=== PATIENT | male | born 1950 | race Caucasian/White ===

== ENCOUNTER 2017-06-07 11:12 | Inpatient (IN) | payer OTHER ==
[~2017-06-07] VITALS: Ht 182.9 cm; Wt 225.4 kg
--- NOTE | ~2017-06-07 | D ---
[facility] [place] [address] DISCHARGE SUMMARY Name: DANNIE DUBOIS Room #: 441-P [facility]..#: [id number] Admission: 06/07/17 Attend Phys: Katie Black MD Discharge: 06/08/17 Date of : 46 Report #: [id number] THIS REPORT FOR: //name// CC: Katie Black DATE OF SERVICE: 06/08/2017 HOSPITAL COURSE: The patient is a 67-year-old morbidly obese white male who has undergone bilateral knee replacement surgeries. He fell in his home and when attempting to get himself up, he rolled over onto his knees and then strained his right knee while he attempted to rise. He had to call the network/telecom engineer to bring him in as he was in severe pain and was unable to bear any weight on that knee. X-rays done in the Emergency Room fortunately did not show any damage to the artificial joint. Physical therapy was consulted. He was able to with assistance get out of bed. He is very worried about getting home due to an appointment tomorrow morning with Cardiology at a different institution to get medical clearance to have bariatric surgery, so therefore, he is discharged home with his medications of albuterol, duloxetine, fluticasone, metformin, omeprazole, triamterene, lisinopril, aspirin, , potassium, metoprolol, pramipexole, diphenhydramine, ipratropium and oxycodone 10/325 one tablet every 4 hours as needed for pain. He is to follow up with his orthopedic surgeon within the next week and follow up with me in 1-2 weeks. <ELECTRONICALLY SIGNED> By: Katie Black MD 06/10/17 0753 [id number] 1704 Katie Black MD /nt
[~2017-06-07 11:12] MED LIST: ACETAMINOPHEN PO; ACIDOPHILUS1 EACH PO; ADVIL200 M2 PO; AMARYL2 MG PO; AMITRIPTYLINE H25 M2 PO; ANTACID PO; BENADRYL25 MG PO; BENAZEPRIL HCL40 MG PO; BIOFREEZE PAI3840 GM TP; BISAC-EVAC10 MG RE; CEPHALEXIN 500500 M1; CITRATE OF MAG296 ML PO; CITRUCEL CAPLET1 TAB PO; COLACE100 MG PO; CYMBALTA30 MG PO; DIFLUCAN PO; DULCOLAX5 MG PO; ENDOCET 10-3251 EACH PO; FLEXERIL PO; FLOMAX PO; FLOVENT HFA 1110 MCG IH; GAS RELIEF180 MG PO; GLUCOPHAGE500 MG PO; HYDROXYZINE HCL50 MG PO; HYTRIN 5 M5 MG/1 CA1 PO; IBUPROFEN 800800 M1 PO; INVANZ IV; KCL PO; LASIX 80 MG TAB80 M1; LISINOPRIL10 MG PO; LORTAB 7.5/5001 TA3 PO; MAXZIDE 75-501 EACH PO; MELOXICAM7.5 MG PO; MILK OF MAGNESIA; MIRALAX255 GM PO; MIRAPEX0.5 MG; MIRAPEX0.5 MG PO; NEXIUM40 MG PO; NYSTATIN 100,0015 G1 TP; OMEPRAZOLE40 MG PO; OXYCONTIN CR 1010 M1 PO; OXYCONTIN CR 2020 MG PO; PERCOCET 5-3251 EACH PO; PREDNISONE 5 MG5 MG PO; PRILOSEC 20 MG20 MG PO; PROVENTIL IH; SENOKOT-S1 TA1 PO; TIZANIDINE HCL4 MG PO; TRIAMTERENE-HC1 EAC3 PO; VERAPAMIL E.R240 M1 PO
[2017-06-07 11:13] VITALS: BP 111/70
[2017-06-07 12:46] LABS: ABSOLUTE NEUTROPHILS 5.7 thou/uL (1.4-8.2); BASOPHILS 1.1 % (0.0-2.0); EOSINOPHILS 4.1 % (0.0-3.0); HEMATOCRIT 44.4 % (42.0-52.0); HEMOGLOBIN 14.8 gm/dL (14.0-18.0); LYMPHOCYTES 22.4 % (24.0-44.0); MCH 26.7 pg (26.0-34.0); MCHC 33.3 g/dL (28.0-37.0); MCV 80.1 fL (80.0-100.0); MONOCYTES 8.7 % (1.0-8.0); PLATELET COUNT 223 thou/uL (150-400); POLYS 63.7 % (36.0-66.0); RBC 5.55 mil/uL (4.50-6.00); RDW 16.3 % (10.5-14.5); WBC 8.9 thou/uL (4.0-11.0)
[2017-06-07 12:52] LABS: CALCIUM 9.4 mg/dL (8.5-10.1); CREATININE 1.1 mg/dL (0.7-1.3); POTASSIUM 4.6 mmol/L (3.5-5.1)
[2017-06-07 14:36] VITALS: BP 111/70
[2017-06-07] MEDS ORDERED: LISINOPRIL10 MG PO (15:12)
[2017-06-07] MEDS ORDERED: ASPIR-TRIN325 MG PO (15:14)
[2017-06-07] MEDS ORDERED: LASIX 80 MG TAB80 MG PO (15:14)
[2017-06-07] MEDS ORDERED: POTASSIUM20 PO (15:15)
[2017-06-07 15:16] VITALS: BP 110/72
[2017-06-07 16:01] VITALS: BP 102/57
[2017-06-07] MEDS ORDERED: LOPRESSOR50 PO (16:12)
[2017-06-07] MEDS ORDERED: KLOR-CON 1010 MEQ PO (16:17)
[2017-06-07] MEDS ORDERED: PRAMIPEXOLE DI0.5 MG PO (16:18)
[2017-06-07] MEDS ORDERED: PRILOSEC 20 MG20 MG PO (16:19)
[2017-06-07] MEDS ORDERED: BENADRYL25 MG PO (16:20)
[2017-06-07] MEDS ORDERED: IPRATROPIU0.2 MG/1 M INH (16:21)
[2017-06-07 20:35] VITALS: BP 106/58
[2017-06-08 04:00] VITALS: BP 109/52
[2017-06-08 07:43] VITALS: BP 118/52
[2017-06-08] MEDS ORDERED: ENDOCET 10-3251 EACH PO (14:58)
[2017-06-08 15:13] VITALS: BP 118/52
[2017-06-08 15:40] VITALS: BP 118/52
[2017-10-25] MEDS ORDERED: CIALIS20 MG PO (09:04)
[2017-10-25] MEDS ORDERED: CALCIUM500 M1 PO (09:05)
[2017-10-25] MEDS ORDERED: UNICOMPLEX M TA1 TA1 PO (09:05)
[2017-10-25] MEDS ORDERED: STOOL SOFTENER1 EAC2 PO (09:06)
== END 2017-06-08 16:30 | disposition home health service (06) | DRG 563 ==
LOC: ER 11:12 → 4S 13:09 → EROBS 13:09 → 4S 15:40 → ENTRNSPT 06-08 15:57 → 4S 06-08 16:30
PROVIDERS: Emergency Medicine
DX: S83.91XA Sprain of unspecified site of right knee, initial encounter (principal); Z68.44 Body mass index [BMI] 60.0-69.9, adult; E66.01 Morbid (severe) obesity due to excess calories; M19.90 Unspecified osteoarthritis, unspecified site; G47.33 Obstructive sleep apnea (adult) (pediatric); G89.29 Other chronic pain; M54.5 Low back pain; K21.9 Gastro-esophageal reflux disease without esophagitis; N40.0 Benign prostatic hyperplasia without lower urinary tract symptoms; F32.9 Major depressive disorder, single episode, unspecified; J44.9 Chronic obstructive pulmonary disease, unspecified; I10 Essential (primary) hypertension; W18.39XA Other fall on same level, initial encounter; Z96.653 Presence of artificial knee joint, bilateral; E11.9 Type 2 diabetes mellitus without complications; Z79.899 Other long term (current) drug therapy; Z88.5 Allergy status to narcotic agent; Z91.041 Radiographic dye allergy status; Z91.040 Latex allergy status; Y93.89 Activity, other specified; Y92.89 Other specified places as the place of occurrence of the external cause; Y99.8 Other external cause status
CPT/HCPCS: 10195

== ENCOUNTER → 2017-10-05 | Outpatient (CLI) | payer OTHER ==
[~2017-10-05] MED LIST changes: +ASPIR 8181 M1 PO; +IPRATROPIU0.2 MG/1 M INH; +KLOR-CON 1010 MEQ PO; +LASIX 80 MG TAB80 MG PO; +LOPRESSOR50 PO; +POTASSIUM20 PO; +PRAMIPEXOLE DI0.5 MG PO
== END ==
LOC: HYPER 06:57
DX: E11.621 Type 2 diabetes mellitus with foot ulcer (principal); L89.892 Pressure ulcer of other site, stage 2; L97.121 Non-pressure chronic ulcer of left thigh limited to breakdown of skin; L97.111 Non-pressure chronic ulcer of right thigh limited to breakdown of skin; I10 Essential (primary) hypertension; M10.9 Gout, unspecified; L30.9 Dermatitis, unspecified; E66.01 Morbid (severe) obesity due to excess calories; M19.90 Unspecified osteoarthritis, unspecified site; K21.9 Gastro-esophageal reflux disease without esophagitis; G47.30 Sleep apnea, unspecified; F32.9 Major depressive disorder, single episode, unspecified; Z98.49 Cataract extraction status, unspecified eye; Z68.43 Body mass index [BMI] 50.0-59.9, adult; Z96.653 Presence of artificial knee joint, bilateral; Z87.891 Personal history of nicotine dependence

== ENCOUNTER → 2017-10-19 | Outpatient (CLI) | payer OTHER | LOC: HYPER 06:55 | DX: E11.622 Type 2 diabetes mellitus with other skin ulcer (principal); L98.411 Non-pressure chronic ulcer of buttock limited to breakdown of skin; L89.322 Pressure ulcer of left buttock, stage 2; L89.312 Pressure ulcer of right buttock, stage 2; I10 Essential (primary) hypertension; L30.9 Dermatitis, unspecified; E66.01 Morbid (severe) obesity due to excess calories; M10.9 Gout, unspecified; M19.90 Unspecified osteoarthritis, unspecified site; K21.9 Gastro-esophageal reflux disease without esophagitis; G47.30 Sleep apnea, unspecified; F32.9 Major depressive disorder, single episode, unspecified; Z98.49 Cataract extraction status, unspecified eye; Z68.43 Body mass index [BMI] 50.0-59.9, adult; Z96.653 Presence of artificial knee joint, bilateral; Z87.891 Personal history of nicotine dependence ==

== ENCOUNTER → 2017-10-25 | Outpatient (CLI) | payer OTHER ==
[~2017-10-25] VITALS: Ht 182.9 cm; Wt 167.8 kg
[~2017-10-25] MED LIST changes: -ASPIR 8181 M1 PO; +ASPIR-TRIN325 MG PO; +CALCIUM500 M1 PO; +CIALIS20 MG PO; +STOOL SOFTENER1 EAC2 PO; +UNICOMPLEX M TA1 TA1 PO
--- NOTE | ~2017-10-25 | HPC ---
[facility] [place] [address] PAIN MANAGEMENT CONSULTATION Name: RALFDANNYDANNIE Room #: [facility].#: [id number] Admission: 10/25/17 Attend Phys: Cruzito Burris DO Discharge: Date of : 48 Report #: [id number] THIS REPORT FOR: //name// CC: Cruzito Black MD DATE OF SERVICE: 10/25/2017 REFERRING PHYSICIAN: Katie Black MD CHIEF COMPLAINT: Right buttock and posterolateral thigh pain. HISTORY OF PRESENT ILLNESS: As you know, the patient is a morbidly obese 67-year-old male with longstanding history of right buttock and posterolateral thigh pain. The patient states his pain began to intensify in August 2017, denies injury or trauma. He indicates that he has undergone physical therapy twice a week for over a month without improvement in symptoms. The pain is localized to the right buttock area with mild radiation towards the posterolateral thigh. There is no dermatomal distribution of symptoms. The patient indicates pain is exacerbated with weightbearing, walking, and sitting, improves with lying down. The patient has been referred to our service to discuss options for treatment. He has been referred today without imaging studies. There is concern of lumbar radiculopathy. The patient indicates pain is continuous, describes his pain as shooting, aching and stabbing. He denies numbness, tingling, burning or electrical like sensations found with neuropathic pain. He states pain at level of 7/10, daily average is 7/10, worst pain has been is 10/10. The patient states that walking and sitting tends to exacerbate symptoms, repositioning and lying down tends to improve pain. He has been referred to our service to discuss treatment options. The patient has had previous epidural injection for low back pain about 20 years ago with resolution of symptoms. PAST MEDICAL HISTORY: 1. Diabetes mellitus type 2. 2. Asthma. 3. Hypertension. 4. Degenerative joint disease. 5. Osteoarthritis. 6. Class 3 morbid obesity. 7. Gastroesophageal reflux disease. 8. Seasonal allergies. 9. Depression. PAST SURGICAL HISTORY: Multiple knee replacements and surgeries, [facility] [address] [place] [address] PAIN MANAGEMENT CONSULTATION Name: DANNIE DUBOIS [id number] Admission: 10/25/17 Attend Phys: Cruzito Burris DO Discharge: Date of : 48 Report #: [id number] cholecystectomy, herniorrhaphy, open reduction and internal fixation of left hip, cataract excisions times 2, and gastric bypass. SOCIAL HISTORY: The patient denies tobacco, alcohol, IV or illicit drug use. 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 He has been retired for nearly 10 years. He is not receiving workmen's compensation nor is he trying to obtain disability benefits. He is not in litigation in regards to pain. He is accompanied by his who is present in room today. REVIEW OF SYSTEMS: Positive for weight change, cataracts, hearing loss with tinnitus, earaches with drainage, loss of appetite, constipation, frequent urination, change in force or stream of urination, kidney stones, insomnia, right buttock and posterolateral thigh pain, seasonal allergies and depression. All other review of systems negative per 12-point review of systems other than those listed in history of present illness. PAIN IMPACT SCORE: 52/70 indicating severe interference of daily activities secondary to pain. ALLERGIES: IODINE, CELECOXIB, and LATEX. CURRENT MEDICATIONS: Senokot-S 1 tab p.o. daily, multivitamin 1 tab per day, calcium carbonate 500 mg 3 times a day, Cialis 20 mg p.r.n., Benadryl 25 mg p.o. at bedtime, pramipexole 0.5 mg p.o. at bedtime, metoprolol 25 mg twice a day, aspirin 325 mg per day, omeprazole 20 mg per day, fluticasone 2 sprays each nostril per day, and duloxetine 30 mg once a day. IMAGING: No imaging available. PQRS: The patient has known osteoarthritis of the bilateral knees, bilateral hips, and low back. He is not diagnosed with rheumatoid arthritis nor is he treated for rheumatoid arthritis. He is a fall risk, but has not had a fall in the past 3 months. He is placing current pain score at 7/10. He is not on blood thinners, but is treated for hypertension. He has not been on opioids for any length of time. His functional assessment tool indicates 52/70, severe interference. PHYSICAL EXAMINATION: VITAL SIGNS: Blood pressure 136/74, pulse is 62, respiratory rate 16 and unlabored, the patient is 96% on room air, height 6 feet tall, weight 370 pounds, and BMI calculated 50.2. GENERAL: Well-developed, well-nourished, well-hydrated, severely morbidly obese 67-year-old male, appears stated age, he is in no acute distress, awake, alert and oriented x3, recurrent pain score 7/10. HEENT: Normocephalic, atraumatic. Pupils are equal, round, and reactive to light. Extraocular muscles are intact. Sclerae are nonicteric without [facility] [address] [place] [address] PAIN MANAGEMENT CONSULTATION Name: DANNIE DUBOIS Room #: [facility]#: [id number] Admission: 10/25/17 Attend Phys: Cruzito Burris DO Discharge: Date of : 48 Report #: [id number] injection. NEUROLOGIC: Cranial nerves 2-12 grossly intact. Speech is fluent. The patient deemed a fair historian. LUNGS: Clear, no wheeze, rhonchi or rales. CARDIOVASCULAR: Regular. No appreciable gallop or rub. ABDOMEN: Soft, large pannus. Bowel sounds are present. EXTREMITIES: Show no clubbing, no cyanosis, 2+ lower extremity edema, nonpitting. MUSCULOSKELETAL: Palpatory tenderness noted over the right buttock area. No radicular component. No radiation of symptoms beyond the buttock. Seated straight leg raising negative. Supine straight leg raising positive for right buttock and posterolateral thigh pain, no radiation of symptoms in a dermatomal distribution. No neural tensioning signals and signs. Kathy's test is positive for right buttock pain and posterolateral thigh pain. No groin pain noted with this procedure. Pain is elicited with extension of the knee and flexion of the hip on the right, negative left. Ankle clonus negative. Babinski is negative. The patient is intact to light touch from L1 through S2 dermatomes. Lumbar provocation testing met with increased axial back pain, no radiation of symptoms. ASSESSMENT: 1. Right buttock pain. 2. Difficulty with ambulating secondary to pain. 3. Possible right hip pathology. 4. Chronic intractable pain. PLAN: 1. Based on today's physical exam, history the patient has provided, the description the patient uses in regards to pain as well as location of symptoms, it appears that he has some type of rigid palpatory mass in that right buttock area. His symptoms do not correlate with lumbar radiculopathy. There is no radiation of symptoms in typical distribution of dermatomes. His symptoms are related mainly to the buttock area and posterolateral thigh. No radiation of symptoms at all noted during the entire examination and his history being provided. I would recommend the patient undergo some imaging studies to determine the level of changes in the lumbar spine as well as I believe further evaluation of the buttock area would be necessary. The patient and I discussed this at length today. He is amenable to undergo x-ray imaging. 2. The patient will be sent for x-ray imaging of the lumbar spine. We will review the findings once they are available and have that provided to the patient. I am confident there will be fairly significant arthritic changes in the area given his body habitus and age, though again I do not feel his symptoms are related to lumbar radiculopathy at present. 3. We will send the patient for x-ray imaging of the bilateral hips to further evaluate. There appears to be a palpatory mass in the right buttock area that is fairly rigid, cannot rule out possible osseous formation. The patient does [address] [address] PAIN MANAGEMENT CONSULTATION Name: DANNIE DUBOIS Room #: REG [facility]#: [id number] Admission: 10/25/17 Attend Phys: Cruzito Burris DO Discharge: Date of : 46 Report #: [id number] have spontaneous calcification and loss of function of the left elbow without inciting injury or trauma, this would place the patient at higher risk for osseous abnormalities to occur elsewhere, further evaluation I would recommend. We will have the patient undergo these x-ray imaging and contact the patient with the findings. 4. We made no changes in the patient's medication therapy at this time, recommend the patient remain on current medication management. Adjustments in therapy can be made if necessary, this will be dependent on our future findings and treatment potential options. 5. We wish to thank Dr. Black for the referral of this patient to our clinic. We will keep you apprised of his response to treatment as we begin evaluation of his right buttock and posterolateral thigh pain. Again, we wish to thank you for the opportunity to see this patient in consultation. ADDENDUM We have received x-rays imaging of the lumbar and right hip. From a lumbar standpoint, the patient shows advanced lumbar spondylosis, no osseous abnormalities identified. There is loss of disk height that is marked with degenerative retrolisthesis at L1-L2 and L2-L3, there is also degenerative retrolisthesis at L3 and L4, and marked disk space narrowing at L5-S1. There was noted on this x-ray imaging a triangular shaped opacity projected over the right medial iliac bone. X-ray of the bilateral hips show no acute osseous abnormality. There is mild hip arthrosis, stable triangular opacity projected over the right medial iliac bone, possible focus of sclerosis. We have reviewed the x-ray imaging with the patient, I recommend further evaluation of this triangular opacity in the right medial iliac bone area, this may be the source of the patient's current pain. This would fit more closely with findings on physical exam than would lumbar radiculopathy. I did advise the patient that if he does wish to undergo epidural injection, he may do so, though I feel further workup of this triangular opacity would be recommended. We have advised the patient he can return at any time if he wishes to undergo epidural injection under fluoroscopic guidance to determine if his symptoms might be improved, further evaluation from the opacity noted on x-ray imaging will be referred back to his PCP for possible surgical consultation. The patient and I did discuss this via telephone this afternoon and he will follow up with his PCP before looking towards interventional treatments. We will be available if you wish to have the patient to return to discuss epidural injection. By: 1716 1831 Cruzito Burris DO /nt
[2017-10-25 09:22] VITALS: BP 136/74
== END ==
LOC: RAD 08:20 → PAIN 08:20
DX: M47.816 Spondylosis without myelopathy or radiculopathy, lumbar region (principal); M16.0 Bilateral primary osteoarthritis of hip; M79.1 Myalgia; G89.4 Chronic pain syndrome; M41.86 Other forms of scoliosis, lumbar region; E11.9 Type 2 diabetes mellitus without complications; I10 Essential (primary) hypertension; J45.40 Moderate persistent asthma, uncomplicated; K21.9 Gastro-esophageal reflux disease without esophagitis

== ENCOUNTER → 2017-11-09 | Outpatient (CLI) | payer OTHER | LOC: HYPER 06:50 | DX: E11.622 Type 2 diabetes mellitus with other skin ulcer (principal); L89.322 Pressure ulcer of left buttock, stage 2; L89.312 Pressure ulcer of right buttock, stage 2; E11.40 Type 2 diabetes mellitus with diabetic neuropathy, unspecified; I10 Essential (primary) hypertension; M10.9 Gout, unspecified; L30.9 Dermatitis, unspecified; M19.90 Unspecified osteoarthritis, unspecified site; E66.01 Morbid (severe) obesity due to excess calories; K21.9 Gastro-esophageal reflux disease without esophagitis; G47.30 Sleep apnea, unspecified; F51.04 Psychophysiologic insomnia; F32.9 Major depressive disorder, single episode, unspecified; Z98.49 Cataract extraction status, unspecified eye; Z68.43 Body mass index [BMI] 50.0-59.9, adult; Z91.81 History of falling; Z96.653 Presence of artificial knee joint, bilateral; Z87.891 Personal history of nicotine dependence ==

== ENCOUNTER 2018-08-04 10:46 | Emergency (ER) | payer OTHER ==
[~2018-08-04] VITALS: Ht 182.9 cm; Wt 133.8 kg
[~2018-08-04 10:46] MED LIST changes: -LOPRESSOR50 PO
[2018-08-04] MEDS ORDERED: LOPRESSOR50 PO (12:08)
[2018-08-04 13:13] VITALS: BP 121/77
== END 2018-08-04 13:40 | disposition home or self-care (01) ==
LOC: ER 10:46
DX: M25.561 Pain in right knee (principal); Z87.891 Personal history of nicotine dependence; Z88.1 Allergy status to other antibiotic agents; Z91.041 Radiographic dye allergy status; Z91.040 Latex allergy status; Z88.5 Allergy status to narcotic agent; Z90.89 Acquired absence of other organs; Z90.49 Acquired absence of other specified parts of digestive tract; Z96.653 Presence of artificial knee joint, bilateral

== ENCOUNTER 2020-03-02 02:22 | Emergency (ER) | payer OTHER ==
[~2020-03-02] VITALS: Ht 182.9 cm; Wt 136.1 kg
[~2020-03-02 02:22] MED LIST changes: +LOPRESSOR50 PO
[2020-03-02 02:50] LABS: ABSOLUTE NEUTROPHILS 4.2 thou/uL (1.4-8.2); BASOPHILS 0.5 % (0.0-2.0); EOSINOPHILS 0.2 % (0.0-3.0); HEMATOCRIT 45.2 % (42.0-52.0); HEMOGLOBIN 15.3 gm/dL (14.0-18.0); LYMPHOCYTES 21.1 % (24.0-44.0); MCH 30.9 pg (26.0-34.0); MCHC 33.8 g/dL (28.0-37.0); MCV 91.5 fL (80.0-100.0); MONOCYTES 7.5 % (1.0-8.0); PLATELET COUNT 85 thou/uL (150-400); POLYS 70.7 % (36.0-66.0); RBC 4.94 mil/uL (4.50-6.00); RDW 15.5 % (10.5-14.5); WBC 5.9 thou/uL (4.0-11.0)
[2020-03-02 03:05] LABS: CALCIUM 8.7 mg/dL (8.5-10.1); CREATININE 0.8 mg/dL (0.7-1.3); POTASSIUM 3.4 mmol/L (3.5-5.1)
[2020-03-02 03:10] LABS: ALBUMIN 4.6 g/dL (3.4-5.0); TOTAL BILIRUBIN 1.5 mg/dL (0.2-1.0); TOTAL PROTEIN 7.8 g/dL (6.4-8.2)
[2020-03-02 04:42] LABS: URINE BILIRUBIN NEGATIVE (Negative); URINE BLOOD NEGATIVE (Negative); URINE CLARITY CLEAR; URINE COLOR YELLOW; URINE GLUCOSE-RANDOM* NEGATIVE (Negative); URINE KETONES NEGATIVE (Negative); URINE LEUKOCYTES-REFLEX NEGATIVE (Negative); URINE NITRITE-REFLEX NEGATIVE (Negative); URINE PROTEIN (DIPSTICK) TRACE (Negative); URINE SPECIFIC GRAVITY >= 1.030 (1.005-1.035); URINE UROBILINOGEN 0.2 E.U./dl (0.2-1.0)
[2020-03-02 04:43] LABS: PLATELET ESTIMATE DECREASED
[2020-03-02 05:16] VITALS: BP 129/95
[2020-03-02] MEDS ORDERED: BENTYL 20 MG TA20 M1 PO (17:14)
== END 2020-03-02 05:16 | disposition home or self-care (01) ==
LOC: ER 02:22
PROVIDERS: Emergency Medicine
DX: K52.9 Noninfective gastroenteritis and colitis, unspecified (principal); Z90.49 Acquired absence of other specified parts of digestive tract; Z90.89 Acquired absence of other organs; Z79.899 Other long term (current) drug therapy; Z87.891 Personal history of nicotine dependence; Z88.5 Allergy status to narcotic agent; Z88.8 Allergy status to other drugs, medicaments and biological substances; Z91.040 Latex allergy status; Z91.041 Radiographic dye allergy status

== ENCOUNTER 2020-03-02 15:04 | Emergency (ER) | payer OTHER ==
[~2020-03-02] VITALS: Ht 182.9 cm; Wt 136.1 kg
[2020-03-02 16:13] LABS: BASOPHILS 0.3 % (0.0-2.0); EOSINOPHILS 0.4 % (0.0-3.0); HEMATOCRIT 44.1 % (42.0-52.0); HEMOGLOBIN 14.8 gm/dL (14.0-18.0); LYMPHOCYTES 13.7 % (24.0-44.0); MCHC 33.6 g/dL (28.0-37.0); MCV 92.1 fL (80.0-100.0); MONOCYTES 6.8 % (1.0-8.0); POLYS 78.8 % (36.0-66.0); RBC 4.79 mil/uL (4.50-6.00); RDW 15.7 % (10.5-14.5); WBC 6.4 thou/uL (4.0-11.0)
[2020-03-02 16:19] LABS: CALCIUM 9.2 mg/dL (8.5-10.1); CREATININE 0.7 mg/dL (0.7-1.3); POTASSIUM 3.7 mmol/L (3.5-5.1)
[2020-03-02 16:25] LABS: ALBUMIN 4.2 g/dL (3.4-5.0); TOTAL BILIRUBIN 1.7 mg/dL (0.2-1.0); TOTAL PROTEIN 7.5 g/dL (6.4-8.2)
[2020-03-02 16:34] LABS: PLATELET COUNT 77 thou/uL (150-400)
[2020-03-02 16:37] LABS: URINE BILIRUBIN NEGATIVE (Negative); URINE BLOOD TRACE (Negative); URINE CLARITY CLEAR; URINE COLOR YELLOW; URINE GLUCOSE-RANDOM* NEGATIVE (Negative); URINE KETONES NEGATIVE (Negative); URINE LEUKOCYTES-REFLEX NEGATIVE (Negative); URINE NITRITE-REFLEX NEGATIVE (Negative); URINE PROTEIN (DIPSTICK) NEGATIVE (Negative); URINE SPECIFIC GRAVITY 1.015 (1.005-1.035); URINE UROBILINOGEN 0.2 E.U./dl (0.2-1.0)
[2020-03-02] MEDS ORDERED: BENTYL 20 MG TA20 M1 PO (17:14)
[2020-03-02 18:12] VITALS: BP 136/69
== END 2020-03-02 18:12 | disposition home or self-care (01) ==
LOC: ER 15:04
PROVIDERS: Physician Assistant
DX: R10.12 Left upper quadrant pain (principal); R10.32 Left lower quadrant pain; Z98.84 Bariatric surgery status; Z90.49 Acquired absence of other specified parts of digestive tract; Z90.89 Acquired absence of other organs; Z79.899 Other long term (current) drug therapy; Z87.891 Personal history of nicotine dependence; Z88.5 Allergy status to narcotic agent; Z88.8 Allergy status to other drugs, medicaments and biological substances; Z91.040 Latex allergy status; Z91.041 Radiographic dye allergy status

== ENCOUNTER 2020-07-23 01:07 | Inpatient (IN) | payer OTHER ==
[2020-07-23] VITALS (10 sets, daily range): BP systolic 100–136; BP diastolic 44–90
[~2020-07-23] VITALS: Ht 182.9 cm; Wt 135.6 kg
[~2020-07-23 01:07] MED LIST changes: +BENTYL 20 MG TA20 M1 PO
[2020-07-23] MEDS ORDERED: DRIZALMA SPRINK30 MG PO (01:15)
[2020-07-23] MEDS ORDERED: MELOXICAM15 MG PO (01:15)
[2020-07-23 01:59] LABS: WBC 3.1 thou/uL (4.0-11.0)
[2020-07-23 02:00] LABS: ANION GAP 8 mmol/L (7-16); BUN 25 mg/dL (7-18); CALCIUM 8.3 mg/dL (8.5-10.1); CHLORIDE 101 mmol/L (98-107); CO2 27 mmol/L (21-32); CREATININE 0.8 mg/dL (0.7-1.3); GLUCOSE 146 mg/dL (74-106); SODIUM 136 mmol/L (136-145)
[2020-07-23 02:01] LABS: MCH 32.7 pg (26.0-34.0); MCHC 35.1 g/dL (28.0-37.0); MCV 93.1 fL (80.0-100.0); PLATELET COUNT 62 thou/uL (150-400); RBC 1.89 mil/uL (4.50-6.00)
[2020-07-23 02:03] LABS: HEMOGLOBIN 6.2 gm/dL (14.0-18.0)
[2020-07-23 02:04] LABS: HEMATOCRIT 17.6 % (42.0-52.0)
[2020-07-23 02:12] LABS: ALBUMIN 2.6 g/dL (3.4-5.0); SGOT 46 U/L (15-37); SGPT 32 U/L (16-63); TOTAL BILIRUBIN 1.2 mg/dL (0.2-1.0); TOTAL PROTEIN 6.6 g/dL (6.4-8.2); TROPONIN-I <0.06 ng/mL (<0.06)
[2020-07-23 03:28] LABS: ABSOLUTE NEUTROPHILS 1.3 thou/uL (1.4-8.2); NUCLEATED RBCS 3 /100WBC
[2020-07-23 03:29] LABS: ANISOCYTOSIS 1+; PLATELET ESTIMATE DECREASED; POIKILOCYTOSIS 1+; POLYCHROMASIA 1+
[2020-07-23 04:35] LABS: URINE BILIRUBIN NEGATIVE (Negative); URINE BLOOD NEGATIVE (Negative); URINE CLARITY CLEAR; URINE COLOR YELLOW; URINE GLUCOSE-RANDOM* NEGATIVE (Negative); URINE KETONES NEGATIVE (Negative); URINE LEUKOCYTES-REFLEX NEGATIVE (Negative); URINE NITRITE-REFLEX NEGATIVE (Negative); URINE PROTEIN (DIPSTICK) NEGATIVE (Negative)
[2020-07-23 05:15] LABS: WBC 3.1 thou/uL (4.0-11.0)
[2020-07-23 05:19] LABS: MCHC 35.5 g/dL (28.0-37.0); MCV 92.8 fL (80.0-100.0); RBC 1.77 mil/uL (4.50-6.00)
[2020-07-23 05:31] LABS: HEMATOCRIT 16.4 % (42.0-52.0); HEMOGLOBIN 5.8 gm/dL (14.0-18.0)
--- NOTE | 2020-07-23 07:04 | NUR ---
0625 RECIEVED FROM ER PER CART. SPILLED URINE IN BED. LINENS CHANGED AND PARTIAL BATH DONE. ORIENTED TO ROOM AND FLOOR POLICIES. ADMISSION PROCESS STARTED. 2ND IV STARTED FOR BLOOD.
--- NOTE | 2020-07-23 07:04 | EKG ---
[address] [place] [address] ELECTROCARDIOGRAM REPORT Name: DANNIE DUBOIS Room #: 210- ADM IN [facility].#: [id number] Admission: 07/23/20 Attend Phys: Erick Pablo MD Discharge: Date of : 48 Report #: [id number] [facility] ED Test Date: 2020-07-23 Test Time: 02:30:08 Pat Name: DANNIE DUBOIS Department: Room: 210 Gender: M Fraud Representative: BOBBI : 1950 Requested By: Tasneem Nur Order Number: [id number] MD: Vinh Aragon Measurements Intervals [place] Rate: 93 P: [place]: QRS: -20 QRSD: 102 T: 35 QT: 376 QTc: 468 Interpretive Statements Atrial fibrillation Baseline wander in lead(s) V2 Compared to ECG 11/14/2010 13:08:25 Sinus bradycardia no longer present First degree AV block no longer present Electronically Signed On 07-23-2020 7:04:33 CDT by Vinh Aragon [email or web address] <ELECTRONICALLY SIGNED> By: Vinh Aragon MD, [facility] 07/23/20 0704 023 9 Vinh Aragon MD, [facility] /EPI
--- NOTE | 2020-07-23 08:18 | NUR ---
ASSUMED PT CARE AT 0700. PT BEGIN RECEIVING BLOOD TRANSFUSION. PT DENIES ANY ADVERSE REACTIONS AT THIS TIME. VSS. ADMISSION ASSESSMENT PERFORMED CHARTED. WILL CONTINUE TO MONITOR AND FOLLOW POC.
--- NOTE | 2020-07-23 10:33 | NUR ---
PATIENTS PHARMACY CONTACTED FOR MED FILL LIST FOR THE PAST YEAR, THE ONLY MEDS FILLED WERE LISTED ON PTS MED REC WITH THE EXCEPTION OF A VENTOLIN INHALER, 2PUFF DAILY PRN. PROVIDERS AWARE.
--- NOTE | 2020-07-23 12:00 | NUR ---
PT RESTING IN BED, BLOOD HAS FINISHED. WILL CONTINUE TO MONITOR AND FOLLOW POC.
[2020-07-23 13:30] LABS: OBSERVED RETIC COUNT 2.66 % (0.6-2.6)
[2020-07-23 13:38] LABS: APTT 24.2 Seconds (24.5-32.8); INR 1.14; PROTIME 12.3 Seconds (9.3-11.4)
[2020-07-23 13:42] LABS: % SATURATION 59 % (20-39); IRON 99 ug/dL (65-175); TIBC 168 ug/dL (250-450)
--- NOTE | 2020-07-23 14:46 | NUR ---
CONTACTED DR CHAMBERS ABOUT A SECOND UNIT OF RBCS DUE TO HGB OF 6.6. AWAITING REPLY.
[2020-07-23 15:03] LABS: FOLIC ACID 28.3 ng/mL (8.6-58.9)
--- NOTE | 2020-07-23 15:47 | NUR ---
PT SITTING IN BED, FAMILY AT BEDSIDE. SECOND UNIT OF BLOOD TRANSFUSING. ASSESSMENT PERFORMED CHARTED. VSS. WILL CONTINUE TO MONITOR AND FOLLOW POC.
--- NOTE | 2020-07-23 16:25 | NUR ---
met with patient, at bedside. Patient admits with fall, anemia and weakness. Patient reports he lives at home with . He uses a walker at home and community. Has rec HH in past. Has steps in his home but no difficulty with steps. Patient cont to drive. Therapy evals to be ordered to assist with dc planning. casemgt following.
[2020-07-24 00:29] VITALS: BP 117/52; BP 122/61
[2020-07-24 01:00] VITALS: BP 123/55
--- NOTE | 2020-07-24 03:12 | NUR ---
SLEEPING MOST OF SHIFT. TURNS SELF IN BED. DEINES FEELING OF DIZZINESS. ONE UNIT BLOOD GIVEN WITHOUT PROBLEMS. WORKING ON GOALS AND PLAN OF CARE FOR NOC. PROGRESSING SLOWLY. NO SIGNS OF ACTIVE BLEEDING. CONTINUE TO ASSES CLOSELY.
[2020-07-24 03:40] VITALS: BP 122/61
[2020-07-24 06:01] LABS: HEMOGLOBIN 7.5 gm/dL (14.0-18.0)
[2020-07-24 06:04] LABS: HEMATOCRIT 21.3 % (42.0-52.0); MCH 32.2 pg (26.0-34.0); MCHC 35.2 g/dL (28.0-37.0); MCV 91.6 fL (80.0-100.0); RBC 2.32 mil/uL (4.50-6.00); RDW 16.3 % (10.5-14.5); WBC 2.3 thou/uL (4.0-11.0)
[2020-07-24 06:05] LABS: PLATELET COUNT 16 thou/uL (150-400)
[2020-07-24 06:24] LABS: CALCIUM 8.3 mg/dL (8.5-10.1); CREATININE 0.6 mg/dL (0.7-1.3); POTASSIUM 3.6 mmol/L (3.5-5.1)
--- NOTE | 2020-07-24 06:59 | HC ---
[facility] [place] [address] CONSULTATION Name: DANNIE DUBOIS Melissa Room #: 210-P ADM IN [facility].#: [id number] Admission: 07/23/20 Attend Phys: Erick Pablo MD Discharge: Date of : 48 Report #: [id number] THIS REPORT FOR: cc: Katie Black MD, Sara A. MD [facility] ~ DATE OF SERVICE: 07/23/2020 REQUESTING PHYSICIAN: Erick Pablo MD PRIMARY CARE PHYSICIAN: Katie Black MD GI PHYSICIAN: Dr. Sylvester Castaneda, who referred the patient to hospital. REASON FOR CONSULTATION: Thrombocytopenia. HISTORY OF PRESENT ILLNESS: The patient is a very pleasant 70-year-old gentleman from the [place] who came to the hospital because he had fallen at home. Here in the ER, he was found to have a hemoglobin 6.2, white count 3.1 with an ANC of 1300, platelets of 62,000 which was subsequently 20,000, MCV of 93, RDW of 17. The rest of differential showed 39 segment neutrophils, 2% bands, 51% lymphocytes, 6 monocytes, 2 basophils and 3 nrbc's. Labs also notable for a BUN of 25, creatinine 0.8. AST slightly elevated at 46, ALT normal at 32, total bilirubin slightly up at 1.2, alkaline phosphatase is 79. UA appears unremarkable. CT head without clots or ischemic changes. The patient has a fairly negative ____ mood. He denies any headache, vision changes, swallowing troubles, mouth sores. Does have GERD/reflux. He takes ccts-geu-aoxlnhm Prilosec for some time. No breathing troubles. No coughing. No spitting up of blood, no nosebleeds. No unusual rashes or ecchymosis. No new abdominal pain, no new diarrhea, no new constipation, no blood in his urine or stool. He does have some mild chronic left leg swelling that he reports. Reports no vaccines recently. No sick pets, no sick spouse at home. His medications he says are very few, he has been on duloxetine. He thinks for about 6 weeks, which I looked at is almost a 0 chance of blood dyscrasias. He has been on meloxicam for maybe 4 months that has maybe less than 2% chance of various blood dyscrasias. He has been on Prilosec, which is reported as perhaps very rare blood dyscrasias. He has also had no chemical exposures with bug balms; weed killers, etc., in his household around his house. PAST MEDICAL HISTORY: Notable for Job-en-Y gastric bypass in 07/2017. The patient reports weighing more than 500 pounds and lost 200 plus pounds to his current weight. Also, history of cataracts, tonsillectomy, cholecystectomy, left and right total knee surgery, umbilical hernia, left hip fracture surgery in 2012, removal of right knee prosthesis and spacers in the past, has mood [facility] [address] [place] [address] CONSULTATION Name: DANNIE DUBOIS Room #: 210-P [facility]#: [id number] Admission: 07/23/20 Attend Phys: Erick Pablo MD Discharge: Date of : 48 Report #: [id number] disorder, has arthralgias. FAMILY HISTORY: Both mother and father had diabetes and hypertension and in their 90s. He has a sister who is healthy, has no children. SOCIAL HISTORY: Has a at home. 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 Has not drank for many number of years, has not smoked for [address]. MEDICATIONS: At home, appeared to include the duloxetine, meloxicam and fqsx-kyc-afdyczi Prilosec. PHYSICAL EXAMINATION: VITAL SIGNS: The patient's reported height is 6 feet, 182.9 cm. Weight is 294 pounds or 133.7 kilograms. Recent blood pressure is 136/67, O2 sat of 90%, respirations 18, pulse 80, afebrile at 98.7. HEENT: Face is symmetrical. MOOD: Pleasant, though somewhat quiet. NEUROLOGIC: Speech and thought pattern appear to be normal. He is moving arms and legs appropriately. SKIN: Does not reveal any usual ecchymosis or skin rashes. LYMPHATICS: No enlarged lymph nodes in the supraclavicular, cervical, inguinal region. ABDOMEN: Quite obese. No obvious masses, but be quite difficult to tell. EXTREMITIES: The patient does have some trace edema in the left ankle. IMAGING: Includes a CT head, which is fairly unremarkable with regard to bleeding or clotting. ASSESSMENT AND PLAN: 1. Pancytopenia without clear etiology, also ____ MCV and RDW are fairly close to normal and also the patient's symptoms from anemia are very minimal. I agree with transfusion to keep hemoglobin close for about 7. Also, we will try to keep platelets above 15 or 20. We will check a number of lab tests that may help elucidate cause such as B12, folate, iron, retic count, peripheral smear, LDH and coags. We will also tentatively make plans for a bone marrow biopsy tomorrow. It is possible this could be medication related with related to the meloxicam was less than 2% incidence. There is also possibly could be involving in bone marrow disorder. We will follow with you. 2. Arthralgias. Avoid meloxicam, especially with nonsteroidal effect and potential etiology for the cytopenia, could consider Tylenol. 3. Mood disorder, could continue duloxetine. [facility] [address] [place] [address] CONSULTATION Name: DANNIE DUBOIS Room #: 210-P [facility] IN [facility]#: [id number] Admission: 07/23/20 Attend Phys: Erick Pablo MD Discharge: Date of : 46 Report #: [id number] 4. Acid reflux issues, can continue the PPI agent or could switch to 5H2 pravin. We will follow with you. <ELECTRONICALLY SIGNED> By: Jamie Lopez MD 07/24/20 0659 0909 1440 Jamie Lopez MD /nt
[2020-07-24 08:00] VITALS: BP 124/64
[2020-07-24 09:36] LABS: ABSOLUTE NEUTROPHILS 0.9 thou/uL (1.4-8.2); METAMYELOCYTES 2 %; NUCLEATED RBCS 1 /100WBC
[2020-07-24 09:40] LABS: ANISOCYTOSIS 2+; PLATELET ESTIMATE MARKEDLY DECREASED; SCHISTOCYTES 1+
[2020-07-24 09:41] LABS: ATYPICAL LYMPHS 5 %
--- NOTE | 2020-07-24 14:35 | NUR ---
Case discussed with the care team. Possible HH referral. Pt has had [facility] in the past. Referral to be sent by the dc shutdown planner. Pt being seen by therapy. Onc consult with bone marrow bx in progress. Monitoring hgb and plts. DC timeframe 1-2 days pending his labs and onc w/u.
--- NOTE | 2020-07-24 16:14 | NUR ---
FAXED REFERRAL TO [facility] SPOKE WITH VIVIAN IN INTAKE SHE RECEIVED REFERRAL AND CAN ACCEPT AT [facility].
[2020-07-24 16:15] VITALS: BP 124/64
--- NOTE | 2020-07-24 16:51 | NUR ---
PT HAD BONE MARROW BIOPSY TODAY. PT STATES HE FEELS BETTER AND REPORTS NO DIZZINESS OR FAINTNESS WHEN OUT OF BED TO BSC TODAY. PT C/O MILD DISCOMFORT TO BIOPSY SITE. APAP GIVEN W/ RELIEF NOTED. PT PROGRESSING TOWARD GOALS.
[2020-07-24 19:35] VITALS: BP 119/61
[2020-07-25 04:00] VITALS: BP 123/60
[2020-07-25 05:05] LABS: HEMOGLOBIN 7.3 gm/dL (14.0-18.0); MCH 32.1 pg (26.0-34.0); RBC 2.28 mil/uL (4.50-6.00)
[2020-07-25 05:10] LABS: HEMATOCRIT 20.9 % (42.0-52.0); MCV 91.7 fL (80.0-100.0); PLATELET COUNT 20 thou/uL (150-400); RDW 15.9 % (10.5-14.5); WBC 2.2 thou/uL (4.0-11.0)
[2020-07-25 05:18] LABS: CREATININE 0.6 mg/dL (0.7-1.3); POTASSIUM 3.6 mmol/L (3.5-5.1)
[2020-07-25 07:15] VITALS: BP 130/66
--- NOTE | 2020-07-25 07:50 | NUR ---
pt resting in bed thru the noc, prn tylenol given for lumbar puncture site, vss, voiding per urinal, will con't to monitor per ppoc.
[2020-07-25 10:36] LABS: ABSOLUTE NEUTROPHILS 0.7 thou/uL (1.4-8.2); ATYPICAL LYMPHS 6 %; NUCLEATED RBCS 2 /100WBC
[2020-07-25 10:37] LABS: ANISOCYTOSIS 1+; OVALOCYTES FEW
[2020-07-25 10:39] LABS: POLYCHROMASIA OCCASIONAL
[2020-07-25 10:40] LABS: TEARDROPS RARE
[2020-07-25 11:13] VITALS: BP 129/63
--- NOTE | 2020-07-25 13:15 | NUR ---
Consult rec'd to initiate transfer request to [facility] for possible new leukemia dx. Transfer RN contacted [phone] and face sheet faxed to [phone]. Dr. Lopez's cell provided for their dr to call. Clinical also faxed to them and us to call rad to upload all imaging to the cloud. The unit RN updated the attending. Chart copy requested. Pt aware of above. Awaiting call back from FELICITAS perkins.
[2020-07-25] MEDS ORDERED: PROTONIX40 M4 PO (14:23)
[2020-07-25 14:46] VITALS: BP 131/69
[2020-07-25 15:43] VITALS: BP 138/75
--- NOTE | 2020-07-25 19:41 | NUR ---
ASSUMED CARE SHIFT CHANGE. ASSESSMENTS CHARTED.MEDS GIVEN. DENIES PAIN. VSS. PT UP WITH PHYS THERAPY TOLERATING WELL. HGB STABLE NO OBVIOUS SIGNS BLEEDING. TX TO [facility] REQUESTED PER DR MAYERS, CASE MANAGEMENT NOTIFIED, PHYSICIAN AND LOG POND WORKER NOTIFIED. FAMILY IN ROOM AND UPDATED. REPORT CALLED TO BILLY EMANUEL AT . TELE REMOVED. AMBULANCE TRANSPORTED PT WITH ALL BELONGINGS.
== END 2020-07-25 17:20 | disposition short-term general hospital (02) | DRG 808 ==
LOC: ER 01:07 → 2N 03:03 → EROBS 03:03 → 2N 06:29
PROVIDERS: Emergency Medicine; Internal Medicine Hematology & Oncology; Nurse Practitioner; Nurse Practitioner Family; ADMIT Hospitalist; ATTEND Hospitalist
PROC: 30233N1 Transfusion of Nonautologous Red Blood Cells into Peripheral Vein, Percutaneous Approach (ICD-10-PCS; principal; 2020-07-23)
PROC: 07DR3ZX Extraction of Iliac Bone Marrow, Percutaneous Approach, Diagnostic (ICD-10-PCS; 2020-07-24)
DX: D61.818 Other pancytopenia (principal); E43 Unspecified severe protein-calorie malnutrition; Z68.41 Body mass index [BMI] 40.0-44.9, adult; F39 Unspecified mood [affective] disorder; K21.9 Gastro-esophageal reflux disease without esophagitis; F32.9 Major depressive disorder, single episode, unspecified; M19.90 Unspecified osteoarthritis, unspecified site; E66.9 Obesity, unspecified; Z98.42 Cataract extraction status, left eye; Z98.41 Cataract extraction status, right eye; Z90.49 Acquired absence of other specified parts of digestive tract; Z88.8 Allergy status to other drugs, medicaments and biological substances; Z88.6 Allergy status to analgesic agent; Z91.041 Radiographic dye allergy status; Z91.040 Latex allergy status; Z87.891 Personal history of nicotine dependence; Z83.3 Family history of diabetes mellitus; Z82.49 Family history of ischemic heart disease and other diseases of the circulatory system; Z87.81 Personal history of (healed) traumatic fracture; Z79.1 Long term (current) use of non-steroidal anti-inflammatories (NSAID); Z79.899 Other long term (current) drug therapy
CPT/HCPCS: 10081

== ENCOUNTER 2021-02-09 23:12 | Emergency (ER) | payer OTHER ==
[~2021-02-09] VITALS: Ht 182.9 cm; Wt 120.2 kg
--- NOTE | ~2021-02-09 | EMS ---
[place] [id number] [facility] Patient Care Report Name: DANNIE DUBOIS Room #: DEP RANDALL [facility]#: [id number] Admission: 02/09/21 Attend Phys: Discharge: 02/10/21 Date of : 46 Report #: [id number] THIS REPORT FOR: //name// Report Transmitted: 02/10/2021 15:00 EMS Care Summary [place], [place]/[facility] Incident [id number] @ 02/09/2021 22:38 Incident Location [address] [address] Patient DANNIE DUBOIS Male, 70 Years 1950 Patient Address [address] [place] [address] Patient History Other,Morbid Obesity,Chronic Pain,Leukemia, Patient Allergies Latex allergy,Iodine,Celebrex, Patient Medications Albuterol, Acyclovir, Trazodone, Acetaminophen, Metoprolol, Seroquel, Cymbalta, Pantoprazole, Chief Complaint left sided tingling Disposition Transported No Lights/[place] Dispatch Reason Stroke/CVA Transported To [facility] Narrative EMS arrived on scene to find a 70 y/o male complaining of tingling on his left side for roughly a week, the pt's thought she heard the pt have slurred speech for roughly one minute prior to calling ems. Pt was negative on css. 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 Pt denied soa, denied chest pain. Pt vitals monitored. Pt vitals stable. Pt condition did not change en route. Pt care transferred. Initial Vitals @23:02P: 67,R: 16,BP: 122/68,Pain: 0/10,GCS: 15,SpO2: 99,Revised Trauma: 12, @PTAP: 60,R: 16,BP: 129/62,Pain: 0/10,GCS: 15,SpO2: 99,Revised Trauma: 12, Assessments @22:52MENTAL:No Abnormalities,SKIN:No Abnormalities,HEENT:Head/Face: No Abnormalities,Eyes: No Abnormalities,Neck/Airway: No Abnormalities,LUNG SOUNDS:General: No Abnormalities,Left Upper: No Abnormalities,Right Upper: No Abnormalities,Left Lower: No Abnormalities,Right Lower: No Abnormalities,ABDOMEN:General: No Abnormalities,Left Upper: No Abnormalities,Right Upper: No Abnormalities,Left Lower: No Abnormalities,Right Lower: No Abnormalities,PELVIS//GI:No Abnormalities,EXTREMITIES:Left Leg: Other,Left Arm: Other,Right Arm: No Abnormalities,Right Leg: No Abnormalities,PULSE:Radial: 2+ Normal,NEURO:Slurred Speech, Impression Acute Pain, not elsewhere classified Procedures @22:52 ALS Assessment Response: UnchangedSucceeded Timeline HIGH RISK OB,BP: 129/62 M,PULSE: 60,RR: 16 R,SPO2: 99 Ox,ETCO2: ,BG: ,PAIN: 0,GCS: 15, 22:35,Call Received 22:35,Dispatch Notified 22:38,Dispatched 22:41,En Route 22:51,On Scene 22:52,At Patient 22:52,ALS Assessment,Response: UnchangedSucceeded, 22:59,Depart Scene 23:02,BP: 122/68 M,PULSE: 67,RR: 16 R,SPO2: 99 Ox,ETCO2: ,BG: ,PAIN: 0,GCS: 15, 23:08,At Destination 23:19,Call Closed Disclaimer v1.1 Copyright 2020 [employer] This EMS Care Summary contains data elements from the applicable legal record (which may be displayed differently). It is designed to provide pertinent information for the following purposes: continuity of care, clinical quality, and state data reporting. The complete legal [place] [address] EMS Patient Care Report Name: DANNIE DUBOIS Room #: DEP [facility]#: [id number] Admission: 02/09/21 Attend Phys: Discharge: 02/10/21 Date of : 46 Report #: [id number] and administrators of the receiving hospital in [employer] Patient Tracker. All data is provided "as is."
[~2021-02-09 23:12] MED LIST changes: +DRIZALMA SPRINK30 MG PO; +MELOXICAM15 MG PO; +PROTONIX40 M4 PO
[2021-02-09 23:42] LABS: HEMATOCRIT 28.5 % (42.0-52.0); HEMOGLOBIN 9.6 gm/dL (14.0-18.0)
[2021-02-09 23:44] LABS: MCH 32.2 pg (26.0-34.0); MCHC 33.5 g/dL (28.0-37.0); RBC 2.97 mil/uL (4.50-6.00); RDW 19.4 % (10.5-14.5)
[2021-02-09 23:45] LABS: CALCIUM 8.6 mg/dL (8.5-10.1); CREATININE 0.9 mg/dL (0.7-1.3); POTASSIUM 4.5 mmol/L (3.5-5.1)
[2021-02-09 23:51] LABS: PLATELET COUNT 17 thou/uL (150-400); WBC 1.3 thou/uL (4.0-11.0)
[2021-02-10 00:49] LABS: ABSOLUTE NEUTROPHILS 0.1 thou/uL (1.4-8.2); ATYPICAL LYMPHS 3 %; PLATELET ESTIMATE MARKEDLY DECREASED
[2021-02-10 00:50] LABS: ANISOCYTOSIS 2+; POIKILOCYTOSIS 1+
[2021-02-10 01:02] VITALS: BP 121/77
== END 2021-02-10 01:04 | disposition home or self-care (01) ==
LOC: ER 23:12
PROVIDERS: Emergency Medicine
DX: D61.818 Other pancytopenia (principal); Z90.89 Acquired absence of other organs; Z90.49 Acquired absence of other specified parts of digestive tract; Z79.899 Other long term (current) drug therapy; Z79.891 Long term (current) use of opiate analgesic; Z88.8 Allergy status to other drugs, medicaments and biological substances; Z88.6 Allergy status to analgesic agent; Z88.1 Allergy status to other antibiotic agents; Z91.041 Radiographic dye allergy status; Z91.040 Latex allergy status; Z87.891 Personal history of nicotine dependence